=== PATIENT | male | born 1945 | race Caucasian/White ===

== ENCOUNTER 2020-04-24 10:32 | Outpatient (CLI) | payer MEDICARE, SELFPAY ==
--- NOTE | 2020-04-24 10:35 | ECG_ITS ---
Measurements Intervals [place] Rate: 83 P: 65 SC: 164 QRS: 49 QRSD: 75 T: 69 QT: 354 QTc: 416 Interpretive Statements SINUS RHYTHM NORMAL ECG Electronically Signed On 04-24-2020 10:49:31 [employer]CH[employer] APPRENTICE by Melquiades Draper D.O.
== END 2020-04-24 10:33 | disposition home or self-care (01) ==
PROVIDERS: PCP Family Medicine Adolescent Medicine; Visit Provider Urology
DX: Z01.818 Encounter for other preprocedural examination (principal); C61 Malignant neoplasm of prostate; I10 Essential (primary) hypertension
CPT/HCPCS: 87086; 93005

== ENCOUNTER 2020-04-29 01:25 | Outpatient (CLI) | payer MEDICARE, SELFPAY ==
[2020-04-29 20:09] LABS: SARS-CoV-2 RNA PCR Negative
== END 2020-04-29 01:26 | disposition home or self-care (01) ==
LOC: ANHCOVIDDT 01:25
PROVIDERS: PCP Family Medicine Adolescent Medicine; Visit Provider Urology
DX: Z01.818 Encounter for other preprocedural examination (principal); Z20.828 Contact with and (suspected) exposure to other viral communicable diseases
CPT/HCPCS: C9803; U0003

== ENCOUNTER 2020-05-02 01:43 | Day surgery (SDC) | payer MEDICARE, SELFPAY ==
[2020-04-18 15:19] VITALS: BMI 31.5
--- NOTE | 2020-05-01 10:31 | WPDANESEPPF ---
Anes - Initial Pre Proc Eval Procedure: Operation Date: 05/02/20 12:00 Proposed Procedures p Insertion SpaceOAR Hydrogel System - Derick Asher MD Date/Time: 05/01/20 10:31 Surgeon: Derick Asher MD Pre Op Diagnosis: Prostate CA Patient Data Age: 74 Gender: M Height: 1.73 m Weight: 94 kg Allergies Allergy/AdvReac Type Severity Reaction Status Date / Time No Known Allergies Allergy Verified 05/02/20 09:57 Home Medications Medication Instructions Recorded Confirmed Type aspirin [Aspir-81] 81 mg PO DAILY 04/18/20 05/02/20 History atorvastatin 20 mg PO HS 04/18/20 05/02/20 History benazepril 10 mg PO QAM 04/18/20 05/02/20 History cinnamon bark [Cinnamon] 1,000 mg PO DAILY 04/18/20 05/02/20 History glucosamine-chondroitin [Osteo 1 tablet PO BID 04/18/20 05/02/20 History Bi-Flex] latanoprost 1 drp OPHTHALMIC (EYE) DAILY 04/18/20 05/02/20 History gu-quzx-cpwnh-lycopene-ginkgo 1 tablet PO DAILY 04/18/20 05/02/20 History [Daily Multiple For Men 50+] omega 9-dys-qvg-fish oil [Fish Oil] 1 cap PO DAILY 04/18/20 05/02/20 History timolol maleate 1 drp OPHTHALMIC (EYE) DAILY 04/18/20 05/02/20 History Patient hx anesthesia problems: none Family hx anesthesia problems: none PMFSH Past Medical History Medical History (Updated 05/01/20 @ 10:32 by Yfn Goodman DO) BPH (benign prostatic hyperplasia) GERD (gastroesophageal reflux disease) Glaucoma Hyperlipidemia Hypertension Prostate cancer Surgical History Surgical History (Updated 05/01/20 @ 10:32 by Yfn Goodman DO) History of appendectomy Social History Social History Smoking status: Never smoker Alcohol intake: current Alcohol use details: 1 DRINK/MONTH Substance use: never Living arrangements: with family Additional living arrangements comments: SPOUSE Gender identity (if verbalized by the patient): Male Spiritual care concerns: No Anes - Eval Final PreProcedure Day of Procedure 05/01/20 10:31 Patient weight: obese Heart: regular rate and rhythm Lungs: clear to auscultation and normal air movement Airway: Mallampati scale class III Neurological: alert and oriented Last oral intake: >/= 8 hours ASA classification: III Emergent: no Anesthetic plan: proceed Anesthesia type and monitoring: general LMA and standard monitoring Informed Consent: The patient's anesthetic plan and its attendant risks and benefits were discussed with the patient/family/POA. Questions were solicited and answers provided to the satisfaction of the patient/family/POA.
[2020-05-02] VITALS (7 sets, daily range): BP systolic 121–150; BP diastolic 74–104; PULSE 74–101; RESP 14–20; TEMP 36.6; O2SAT 97–100
[2020-05-02] MEDS: LACTATED RINGERS 1,000 ML 30 ML IV CONT (10:15)
--- NOTE | 2020-05-02 11:00 | WPDHPUPDATE1 ---
History and Physical Update Update Date/Time: 05/02/20 11:00 History and Physical has been reviewed, including an updated exam of the patient. There are NO changes in the patient's condition. Risks, benefits, and alternatives have been discussed and questions answered. Patient agrees to proceed with procedure.
--- NOTE | 2020-05-02 12:20 | WPDHPUPDATE1 ---
History and Physical Update Update Date/Time: 05/02/20 12:20 History and Physical has been reviewed, including an updated exam of the patient. There are NO changes in the patient's condition. Risks, benefits, and alternatives have been discussed and questions answered. Patient agrees to proceed with procedure. Proceed with space Oar
[2020-05-02] MEDS: ceFAZolin 2 GM/D5W 50 ML 2 GM/50 ML BAG IVPB (12:25)
--- NOTE | 2020-05-02 12:46 | PM.PROC ---
Procedure Note - Detailed Date of procedure: 05/02/20 Pre-op diagnosis: Prostate CA Post-op diagnosis: same Procedure performed: TRUS with Space Oar placement Description of procedure: Patient is taken to the operative suite and correctly identified. Once anesthesia was obtained he was placed in dorsal lithotomy position and prepped in the usual sterile fashion. Transrectal ultrasound was then performed. The prostate was visualized in both sagittal and transverse views. Spinal needle was inserted in the perineum. It was visualized at all times under ultrasound guidance. It was then put in the space between the prostate and the rectum. 1 cc of normal saline was injected to confirm its placement. This was then confirmed in both the sagittal and transverse views. We then injected the prepared Space Oar in to the space. There was good separation of the prostate from the rectum. Patient tolerated procedure well without any complications taken recovery room stable condition. Anesthesia: GLMA Surgeon: Derick Asher MD Drains: No Packing: No Pathology: none sent Complications: No immediate complications Condition: stable Disposition: PACU
== END 2020-05-02 14:15 | disposition home or self-care (01) ==
PROVIDERS: PCP Family Medicine Adolescent Medicine; Visit Provider Urology
PROC: (CPT 55874; principal; 2020-05-02 12:00)
DX: C61 Malignant neoplasm of prostate (principal); I10 Essential (primary) hypertension; E78.5 Hyperlipidemia, unspecified; N40.0 Benign prostatic hyperplasia without lower urinary tract symptoms; K21.9 Gastro-esophageal reflux disease without esophagitis; H40.9 Unspecified glaucoma; Z79.82 Long term (current) use of aspirin; E66.9 Obesity, unspecified; Z68.30 Body mass index [BMI] 30.0-30.9, adult
CPT/HCPCS: 55874; 87086; 93005; A9270; C1889; C9803; J0690; J1100; J2405; J2704; J7120; U0003

== ENCOUNTER 2020-05-08 06:37 | Outpatient (CLI) | payer MEDICARE, SELFPAY ==
--- NOTE | ~2020-05-08 | MR_ITS ---
EXAMINATION: MR pelvis wo con DATE: 05/08/2020 08:07 INDICATION: Prostate cancer. TECHNIQUE: Magnetic resonance imaging (MRI) of the pelvis was performed without intravenous contrast. Sequences included axial and coronal FS FIESTA, coronal T2-weighted FS FSE, axial T2-weighted FSE, a xial STIR FSE, coronal and axial LAVA, axial dual-echo T1-weighted FSPGR, and axial DWI. COMPARISON: CT abdomen and pelvis 12/10/2005 FINDINGS: The prostate is severely enlarged. There are no pathologically enlarged lymph nodes. There is a 3.2 x 1.7 cm fluid collection between the prostate and rectum and involving the anterior wall of the rectu m, likely hematoma from prostate biopsy. There is no osseous metastatic disease. IMPRESSION: 1. Severely enlarged prostate. No evidence of metastatic disease. Reviewed, dictated and finalized at location A. NICIAN'S HELPER
== END 2020-05-08 06:38 | disposition home or self-care (01) ==
PROVIDERS: PCP Family Medicine Adolescent Medicine
DX: C61 Malignant neoplasm of prostate (principal)
CPT/HCPCS: 72195

== ENCOUNTER 2021-08-28 00:09 | Day surgery (SDC) | payer MEDICARE, SELFPAY ==
[2021-08-13 14:15] VITALS: BMI 30.6
[2021-08-28 09:11] LABS: Glucose Point of Care 157 mg/dl (65-105)
[2021-08-28 09:14] VITALS: BP 153/110; PULSE 110; RESP 18; TEMP 36; O2SAT 100
[2021-08-28] MEDS: LACTATED RINGERS 1,000 ML 150 ML IV CONT (09:30)
--- NOTE | 2021-08-28 09:32 | P.CONGI_ITS ---
Assessment and Plan Assessment and plan (1) History of colon polyps: Code(s): Z86.010 - Personal history of colonic polyps Status: Acute Assessment and Plan: Patient has a history of colon polyps in 2012. Plan is for surveillance colonoscopy at this time and consider this at intervals in the future. Further recommendations will be given after endoscopy. GI Consult Note Consult date/time: 08/28/21 09:32 HPI: Elgin Mcbride is a 75 year old male Presents for surveillance colonoscopy. Patient has a prior history of colon polyps 8 or 9 years prior to this. He reports his bowel habits are normal. He denies abdominal pain. He has had no bleeding. Patient has recently had prostate cancer which was treated in he did receive radiation therapy. Denies any alteration in his bowel habits after this. He presents today for neoplasia screening colonoscopy. Family history is noncontributory. Review of Systems Review of Systems: All systems reviewed & are unremarkable except as noted in HPI and below PMFSH Past Medical History Medical History (Updated 08/28/21 @ 09:33 by Ashwin Klein MD) BPH (benign prostatic hyperplasia) GERD (gastroesophageal reflux disease) Glaucoma Hyperlipidemia Hypertension Prostate cancer Surgical History Surgical History (Updated 05/01/20 @ 10:32 by Yfn Goodman DO) History of appendectomy Social History Social History Smoking status: Never smoker Alcohol intake: current Drinks per week: 2 Alcohol use details: 1 DRINK/MONTH Substance use: never Substance use type: does not use Living arrangements: with family Additional living arrangements comments: SPOUSE Gender identity (if verbalized by the patient): Male Spiritual care concerns: No Meds Home Medications and Allergies Home Medications Medication Instructions Recorded Confirmed Type aspirin 81 mg PO DAILY 04/18/20 08/28/21 History cinnamon bark [Cinnamon] 1,000 mg PO DAILY 04/18/20 08/28/21 History glucosamine-chondroitin [Osteo 1 tablet PO BID 04/18/20 08/28/21 History Bi-Flex] latanoprost 1 drp OPHTHALMIC (EYE) DAILY 04/18/20 08/28/21 History cz-uyft-uhqgb-lycopene-ginkgo 1 tablet PO DAILY 04/18/20 08/28/21 History timolol maleate 1 drp OPHTHALMIC (EYE) DAILY 04/18/20 08/28/21 History atorvastatin 40 mg tablet 40 mg PO DAILY #90 tablet 05/22/21 08/28/21 Rx benazepril 10 mg tablet 10 mg PO QAM #90 tablet 08/14/21 08/28/21 Rx Allergies Allergy/AdvReac Type Severity Reaction Status Date / Time No Known Allergies Allergy Verified 08/28/21 09:12 Vital Signs Vital Signs - 24 hr 08/28/21 09:14 Temperature 96.8 F L Pulse Rate 110 H Respiratory Rate 18 Blood Pressure 153/110 H Pulse Oximetry 100 Exam Narrative: Physical exam reveals patient be alert. Vital signs stable. HEENT exam is unremarkable. Patient is anicteric. Lungs are clear to auscultation and percussion. Heart is without murmur or extra sounds. Abdominal exam bowel sounds are present soft nontender with no organomegaly. Di gital external rectal exam is normal.
[2021-08-28 09:39] VITALS: BP 155/100; PULSE 102
--- NOTE | 2021-08-28 10:15 | WPDANESEPPF ---
Anes - Initial Pre Proc Eval Procedure: Operation Date: 08/28/21 10:30 Proposed Procedures p Screening Colonoscopy - Ashwin Klein MD Date/Time: 08/28/21 10:15 Surgeon: Ashwin Klein MD Pre Op Diagnosis: hx of colon polyps Patient Data Age: 75 Gender: M Height: 1.73 m Weight: 89.9 kg Last Vital Signs Temp 96.8 F L 08/28/21 09:14 Pulse 102 H 08/28/21 09:39 Resp 18 08/28/21 09:14 BP 155/100 H 08/28/21 09:39 Pulse Ox 100 08/28/21 09:14 Allergies Allergy/AdvReac Type Severity Reaction Status Date / Time No Known Allergies Allergy Verified 08/28/21 09:12 Home Medications Medication Instructions Recorded Confirmed Type aspirin 81 mg PO DAILY 04/18/20 08/28/21 History cinnamon bark [Cinnamon] 1,000 mg PO DAILY 04/18/20 08/28/21 History glucosamine-chondroitin [Osteo 1 tablet PO BID 04/18/20 08/28/21 History Bi-Flex] latanoprost 1 drp OPHTHALMIC (EYE) DAILY 04/18/20 08/28/21 History it-gexg-tqhvw-lycopene-ginkgo 1 tablet PO DAILY 04/18/20 08/28/21 History timolol maleate 1 drp OPHTHALMIC (EYE) DAILY 04/18/20 08/28/21 History atorvastatin 40 mg tablet 40 mg PO DAILY #90 tablet 05/22/21 08/28/21 Rx benazepril 10 mg tablet 10 mg PO QAM #90 tablet 08/14/21 08/28/21 Rx Laboratory Tests 08/28/21 09:08 POC Capillary Glucose 157 mg/dl H mg/dl (65-105) Patient hx anesthesia problems: none Family hx anesthesia problems: none Results Review: All pre-operative results and documents have been reviewed as part of the pre-operative evaluation. FOR[facility], [facility] Past Medical History Medical History (Updated 08/28/21 @ 09:33 by Ashwin Klein MD) BPH (benign prostatic hyperplasia) GERD (gastroesophageal reflux disease) Glaucoma Hyperlipidemia Hypertension Prostate cancer Surgical History Surgical History (Updated 05/01/20 @ 10:32 by Yfn Goodman DO) History of appendectomy Social History Social History Smoking status: Never smoker Alcohol intake: current Drinks per week: 2 Alcohol use details: 1 DRINK/MONTH Substance use: never Substance use type: does not use Living arrangements: with family Additional living arrangements comments: SPOUSE Gender identity (if verbalized by the patient): Male Spiritual care concerns: No Anes - Eval Final PreProcedure Day of Procedure 08/28/21 10:15 Patient weight: obese Heart: regular rate and rhythm Lungs: clear to auscultation Airway: Mallampati scale class III Neurological: alert and oriented Last oral intake: >/= 8 hours ASA classification: III Emergent: no Anesthetic plan: proceed Anesthesia type and monitoring: general GIVS and standard monitoring Results Review: All pre-operative results and documents have been reviewed as part of the pre-operative evaluation. Informed Consent: The patient's anesthetic plan and its attendant risks and benefits were discussed with the patient/family/POA. Questions were solicited and answers provided to the satisfaction of the patient/family/POA.
[2021-08-28 11:02] VITALS: BP 84/60; PULSE 92; RESP 18; O2SAT 100
[2021-08-28 11:12] VITALS: BP 111/77; PULSE 87; RESP 18; O2SAT 100
[2021-08-28 11:22] VITALS: BP 152/99; PULSE 90; RESP 18; O2SAT 99
== END 2021-08-28 11:30 | disposition home or self-care (01) ==
PROVIDERS: PCP Family Medicine Adolescent Medicine; Visit Provider Internal Medicine Gastroenterology
PROC: 0DJD8ZZ Inspection of Lower Intestinal Tract, Via Natural or Artificial Opening Endoscopic (ICD-10-PCS; CPT 45378; principal; 2021-08-28 10:30)
DX: Z12.11 Encounter for screening for malignant neoplasm of colon (principal); D12.5 Benign neoplasm of sigmoid colon; K64.8 Other hemorrhoids; I10 Essential (primary) hypertension; E78.5 Hyperlipidemia, unspecified; C61 Malignant neoplasm of prostate; K21.9 Gastro-esophageal reflux disease without esophagitis
CPT/HCPCS: 45385; 82948; 88305; J2704; J7120

== ENCOUNTER 2021-10-14 16:45 | Emergency (ER) | payer MEDICARE, SELFPAY ==
[2021-10-14 16:54] VITALS: BP 109/77; PULSE 100; RESP 18; TEMP 36.8; O2SAT 99
--- NOTE | 2021-10-14 17:20 | ED.URI ---
HPI - URI/Sore Throat General Chief Complaint: Upper Respiratory Infection Stated Complaint: Cough Time Seen by Provider: 10/14/21 17:20 Source: patient, family, RN notes reviewed and old records reviewed Mode of arrival: ambulatory Limitations: no limitations History of Present Illness HPI Narrative: 75 year old male who presents to [facility] care accompanied by and daughter. Patient reports that he has had some sinus congestion and sinus drainage,with cough since Friday, denies any fevers chills or sweats or any body aches. Patient reports that tested positive for COVID today and he is here to be tested. Daughter told him he needs to get medication for COVID. Patient has had COVID vaccinations and Booster. MD elicited complaint: cough, rhinorrhea and nasal congestion Treatments prior to arrival: none Related Data Home Medications Medication Instructions Recorded Confirmed aspirin 81 mg tablet,delayed 81 mg PO DAILY 04/18/20 10/14/21 release cinnamon bark 500 mg capsule 1,000 mg PO DAILY 04/18/20 10/14/21 (Cinnamon) glucosamine-chondroitin 250 mg-200 1 tablet PO BID 04/18/20 10/14/21 mg tablet (Osteo Bi-Flex) latanoprost 0.005 % eye drops 1 drp ophthalmic (eye) DAILY 04/18/20 10/14/21 timolol maleate 0.5 % eye drops 1 drp ophthalmic (eye) DAILY 04/18/20 10/14/21 Allergies Allergy/AdvReac Type Severity Reaction Status Date / Time No Known Allergies Allergy Verified 10/14/21 16:57 [facility] Past Medical History Medical History (Updated 10/15/21 @ 00:00 by Marshall Montalvo) BPH (benign prostatic hyperplasia) GERD (gastroesophageal reflux disease) Glaucoma History of colon polyps Hyperlipidemia Hypertension Nephrolithiasis 2005 Prostate cancer 2020, Radiation treatment Surgical History Surgical History (Updated 09/05/21 @ 06:58 by Remi Marie MD) History of appendectomy 1994 History of tonsillectomy and adenoidectomy Family History Family History (Updated 09/06/21 @ 08:54 by Agnieszka Husain MA) Father Cerebrovascular accident Hypertension Mother Diabetes mellitus Pancreatic cancer Sibling Breast cancer Daughter Breast cancer Other Colon polyp Malignant neoplasm of prostate Social History Social History (Updated 09/06/21 @ 08:55 by Agnieszka Husain MA) Smoking status: Never smoker Second hand tobacco smoke exposure: No Alcohol intake: current Drinks per week: 2 Alcohol use details: 1 DRINK/MONTH Substance use: never Substance use type: does not use Additional living arrangements comments: SPOUSE Gender identity (if verbalized by the patient): Male Sexual Orientation (if Verbalized by the Patient): Straight or Heterosexual Spiritual care concerns: No Agree to blood products: Yes Comments At time of signature, agree with nursing past medical, surgical, social and family history. There is no relevant family history pertinent to the presenting complaint Exam Narrative: GENERAL: Well-appearing, well-nourished, and in no acute distress. HEAD: Normocephalic, atraumatic. EYES: PERRLA and EOMI. ENT: Nares with minimal redness clear rhinorrhea no epistaxis. Mucous membranes moist.TM's normal with good light reflex, throat pink with no lesions or exudate tonsils not enlarged post nasal discharge NECK: Supple.no lymphadenopathy CHEST: Clear to auscultation. No respiratory distress.SAO2 99% on room air HEART: Regular rate and rhythm. No murmur heard. Normal peripheral pulses. ABDOMEN: Soft, nontender, nondistended, normal active bowel sounds. EXTREMITIES: Normal range of motion. No edema.denies any body aches SKIN: Warm, dry, no rash. NEURO: No focal deficits. Alert and oriented x3. Course Course Level of Care: Express Care Visit Vital Signs Vital signs: Vital Signs Temperature 36.8 C 10/14/21 16:54 Pulse Rate 100 10/14/21 16:54 Respiratory Rate 18 10/14/21 16:54 Blood Pressure 109/77 10/14/21 16:54 Pulse Oximetry
[2021-10-14 18:39] LABS: SARS-CoV-2 RNA PCR Negative
== END 2021-10-14 17:35 | disposition home or self-care (01) ==
PROVIDERS: Emergency Provider Registered Nurse; PCP Family Medicine Adolescent Medicine
DX: J06.9 Acute upper respiratory infection, unspecified (principal); Z20.822 Contact with and (suspected) exposure to COVID-19; K21.9 Gastro-esophageal reflux disease without esophagitis; H40.9 Unspecified glaucoma; E78.5 Hyperlipidemia, unspecified; I10 Essential (primary) hypertension; Z85.46 Personal history of malignant neoplasm of prostate; N40.0 Benign prostatic hyperplasia without lower urinary tract symptoms; Z79.82 Long term (current) use of aspirin
CPT/HCPCS: 87426; 99213; C9803; G0463; U0003; U0005

== ENCOUNTER → 2022-08-29 12:09 | Outpatient (CLI) | payer MEDICARE, SELFPAY ==
--- NOTE | ~2022-08-29 | XR_ITS ---
EXAMINATION: XR hand LT 2V, XR wrist LT 2V DATE: 08/29/2022 12:31 INDICATION: Posterior pain, swelling and bruising at the left hand and wrist TECHNIQUE: 1. Posteroanterior and lateral views of the left wrist were obtained. 2. Dorsal palmar and lateral views of the left hand were obtained. COMPARISON: None. FINDINGS: Alignment of the left hand and wrist is normal. No fracture identified. Polyarticular osteoarthritis at the left hand and wrist, moderate to severe at multiple interphalangeal joints, moderate severity at the radiocarpal triscaphe and first carpal metacarpal joints. Associated subarticular cystic mckoy ge at the distal pole of the scaphoid. Mild osteoarthritis at the distal radioulnar midcarpal and at the metacarpophalangeal joints. Diffuse soft tissue swelling along the dorsum of the hand. IMPRESSION: 1. 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 No acute osseous or mi ld to . Reviewed, dictated and finalized at location L. IMPRESSION: 1. 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 No acute osseous or mild to .
== END ==
PROVIDERS: PCP Family Medicine Adolescent Medicine; Visit Provider Family Medicine Adolescent Medicine
DX: M25.432 Effusion, left wrist (principal); M19.032 Primary osteoarthritis, left wrist; M19.042 Primary osteoarthritis, left hand
CPT/HCPCS: 73100; 73120

== ENCOUNTER 2023-03-17 11:40 | Emergency (ER) | payer MEDICARE, SELFPAY ==
[2023-03-17 11:51] VITALS: BP 142/81; PULSE 98; RESP 14; TEMP 36.1; O2SAT 98
--- NOTE | 2023-03-17 12:13 | ED.URI ---
HPI - URI/Sore Throat General Chief Complaint: Upper Respiratory Infection Stated Complaint: Sinus Time Seen by Provider: 03/17/23 12:09 Source: patient and RN notes reviewed Mode of arrival: ambulatory Limitations: no limitations History of Present Illness HPI Narrative: 77-year-old male presents with concern for cough. He reports he has been coughing for about 5 days, his symptoms have been improving but his wanted him to be evaluated. He reports some nasal congestion rhinorrhea withdrawal symptoms. He has been taking mkyl-fyc-etobgjv cold medicines. He denies fever, body aches, chills, sweats, shortness of breath MD elicited complaint: cough Related Data Home Medications Medication Instructions Recorded Confirmed aspirin 81 mg tablet,delayed 81 mg PO DAILY 04/18/20 03/17/23 release cinnamon bark 500 mg capsule 1,000 mg PO DAILY 04/18/20 03/17/23 (Cinnamon) glucosamine-chondroitin 250 mg-200 1 tablet PO BID 04/18/20 03/17/23 mg tablet (Osteo Bi-Flex) latanoprost 0.005 % eye drops 1 drp ophthalmic (eye) DAILY 04/18/20 03/17/23 timolol maleate 0.5 % eye drops 1 drp ophthalmic (eye) DAILY 04/18/20 03/17/23 Allergies Allergy/AdvReac Type Severity Reaction Status Date / Time No Known Allergies Allergy Verified 03/17/23 11:50 Review of Systems Review of Systems: CONSTITUTIONAL: Denies malaise, chills, sweats, or fever. EYES: Denies visual changes, redness, or discharge. ENT: Reports rhinorrhea, congestion. Denies sinus pain, otalgia and sore throat. CARDIOVASCULAR: Denies chest pain, palpitations, or edema. RESPIRATORY: Reports cough. Denies dyspnea. GASTROINTESTINAL: Denies abdominal pain, nausea, vomiting, diarrhea SKIN: Denies rash or itching. MUSCULOSKELETAL: Denies myalgia. NEUROLOGIC: Denies headache. All systems reviewed & are unremarkable except as noted in HPI and below PMFSH Past Medical History Medical History (Updated 03/17/23 @ 12:18 by Jackie Cruz NP) BPH (benign prostatic hyperplasia) GERD (gastroesophageal reflux disease) Glaucoma History of colon polyps Hyperlipidemia Hypertension Nephrolithiasis 2005 Prostate cancer 2020, Radiation treatment Surgical History Surgical History (Updated 09/05/21 @ 06:58 by Remi Marie MD) History of appendectomy 1994 History of tonsillectomy and adenoidectomy Family History Family History (Updated 09/06/21 @ 08:54 by Agnieszka Husain MA) Father Cerebrovascular accident Hypertension Mother Diabetes mellitus Pancreatic cancer Sibling Breast cancer Daughter Breast cancer Other Colon polyp Malignant neoplasm of prostate Social History Social History (Updated 09/06/21 @ 08:55 by Agnieszka Husain MA) Smoking status: Never smoker Second hand tobacco smoke exposure: No Alcohol intake: current Drinks per week: 2 Alcohol use details: 1 DRINK/MONTH Substance use: never Substance use type: does not use Living arrangements: with family Additional living arrangements comments: SPOUSE Occupation/Education: retired Gender identity (if verbalized by the patient): Male Sexual Orientation (if Verbalized by the Patient): Straight or Heterosexual Spiritual care concerns: No Agree to blood products: Yes Comments At time of signature, agree with nursing past medical, surgical, social and family history. There is no relevant family history pertinent to the presenting complaint Exam Narrative: GENERAL: Well-appearing, well-nourished, and in no acute distress. HEAD: Normocephalic EYES: PERRLA, conjunctivae clear ENT: Nares clear, turbinates edematous and erythematous, clear discharge. Mucous membranes moist. TM pearly dowling with sharp light reflex bilaterally; no tragal tenderness. Oropharynx not erythematous without lesions. Tonsils not enlarged and without exudate, no drooling, no hoarseness, no trismus, uvula midline. NECK: Supple. No lymphadenopathy CHEST: Clear to ausculta
== END 2023-03-17 12:35 | disposition home or self-care (01) ==
PROVIDERS: Emergency Provider Nurse Practitioner; PCP Family Medicine Adolescent Medicine
DX: J06.9 Acute upper respiratory infection, unspecified (principal); E78.5 Hyperlipidemia, unspecified; I10 Essential (primary) hypertension; Z79.899 Other long term (current) drug therapy; Z79.82 Long term (current) use of aspirin; Z85.46 Personal history of malignant neoplasm of prostate
CPT/HCPCS: 99211; G0463